=== PATIENT | male | born 1970 | race Caucasian/White ===

== ENCOUNTER → 2024-10-16 | Outpatient (CLI) | payer BC ==
--- NOTE | 2024-10-17 07:31 | XR ---
EXAMINATION TYPE: XR abdomen acute w cxr DATE OF EXAM: 10/16/2024 3:37 PM COMPARISON: None. CLINICAL INDICATION: Male, 54 years old with history of R10.13 EPIGASTRIC PAIN, TECHNIQUE: Single view of the chest and 2 views of the abdomen are submitted. FINDINGS: Single view of the chest fails demonstrate evidence for acute pulmonary disease. There is no evidence for pneumoperitoneum. The bowel gas pattern is unremarkable as there is air throughout nondilated small and large bowel. No sizeable air fluid levels.No mass effects are seen. 6 mm left renal calculus suspected. There is moderate fecal stasis. IMPRESSION: 1. There is moderate fecal stasis. [facility], , 10/17/2024 7:29 AM
== END | disposition home or self-care (01) ==
LOC: RADXRMAIN 15:19
PROVIDERS: ATTEND Family Medicine
DX: K56.41 Fecal impaction (principal)
CPT/HCPCS: 74022

== ENCOUNTER → 2024-10-24 | Outpatient (CLI) | payer BC ==
--- NOTE | 2024-10-24 10:13 | US ---
EXAMINATION TYPE: US abdomen complete DATE OF EXAM: 10/24/2024 COMPARISON: US 12/02/2015 CLINICAL INDICATION: Male, 54 years old with history of R10.13 EPIGASTRIC PAIN; Epigastric pain x3 we eks TECHNIQUE: Grayscale and color Doppler imaging of the abdomen was performed. FINDINGS: EXAM MEASUREMENTS: Liver Length: 19.7 cm Gallbladder Wall: 0.2 cm CBD: 0.3 cm, color Doppler imaging was utilized to isolate the common bile duct for measurement. Spleen: 11.1 cm Right Kidney: 11.3 x 5.5 x 7.0 cm Left Kidney: 11.1 x 6.2 x 5.4 cm [employer] NOTES: Pancreas: head and tail obscured by overlying bowel gas Liver: no dilated ducts, masses or cysts. Slightly enlarged Gallbladder: wnl Evidence for sonographic Holland's sign: No CBD: wnl Spleen: wnl. 2 isoechoic areas seen. 1 = 1.7 x 1.7 x 1.7 cm. 2 = 1.5 x 1.5 x 1.6 cm. Right Kidney: wnl, No hydronephrosis, calculi or masses seen Left Kidney: Echogenic focus measuring 0.8 cm located medially and at the inferior pole Upper IVC: wnl Abd Aorta: wnl Exam limited by bowel gas and patient body habitus. The liver is enlarged but homogenous. The intrahepatic portion of the IVC and proximal abdominal aor ta are within normal limits. There is no evidence of cholelithiasis. Common bile duct is unremarkab le. The visualized portions of the pancreas are homogenous. The spleen is normal in size. Some smal l central splenules are present. Kidneys are symmetric and free of hydronephrosis. No renal lesions are seen. Possible 8 mm nonobstructing left renal calculus. IMPRESSION: No acute findings are seen to account for patient's symptoms. [facility], , 10/24/2024 10:11 AM
== END | disposition home or self-care (01) ==
LOC: RADUSWWP 08:15
PROVIDERS: ATTEND Family Medicine
DX: R10.13 Epigastric pain (principal)
CPT/HCPCS: 76700